=== PATIENT | male | born 1995 | race Caucasian/White ===

== ENCOUNTER 2018-04-09 10:30 | Emergency (ER) | payer OTHER ==
[~2018-04-09] VITALS: Ht 175.3 cm; Wt 61.2 kg
[2018-04-09] MEDS ORDERED: SERTRALINE25 MG PO (11:37)
[2018-04-09] MEDS ORDERED: BUSPIRONE5 MG PO (11:37)
[2018-04-09] MEDS ORDERED: NAPROSYN500 MG PO (13:29)
[2018-04-09 13:50] VITALS: BP 131/74
== END 2018-04-09 13:50 | disposition home or self-care (01) | DRG 605 ==
LOC: ED 10:30
DX: S00.01XA Abrasion of scalp, initial encounter (principal); I10 Essential (primary) hypertension; F41.9 Anxiety disorder, unspecified; F32.9 Major depressive disorder, single episode, unspecified; F17.210 Nicotine dependence, cigarettes, uncomplicated; V48.5XXA Car driver injured in noncollision transport accident in traffic accident, initial encounter